=== PATIENT | male | born 2005 | race Hispanic/Latino ===

== ENCOUNTER 2024-06-25 08:38 | Emergency (ER) | payer SELFPAY ==
[~2024-06-25] VITALS: Ht 175.3 cm; Wt 69.9 kg
[2024-06-25 09:53] LABS: BASO # 0.1 10^3/uL (0.0-0.2); BASO % 0.9 % (0.0-1.0); EOS # 0.5 10^3/uL (0.0-0.5); EOS % 8.8 % (0.0-3.0); HEMATOCRIT 45.7 % (42.0-52.0); HEMOGLOBIN 15.6 g/dl (13.5-17.5); LYMPH # 1.1 10^3/uL (1.5-5.0); LYMPH % 19.4 % (24.0-44.0); MEAN CORPUSCULAR HEMOGLOBIN 29.7 pg (27.0-33.0); MEAN CORPUSCULAR HGB CONC 34.1 g/dl (32.0-36.5); MONO # 0.4 10^3/uL (0.0-0.8); MONO % 7.2 % (2.0-8.0); NEUTROPHILS # 3.6 10^3/uL (1.5-8.5); NEUTROPHILS % 63.5 % (36.0-66.0); PLATELET COUNT, AUTOMATED 204 10^3/uL (150-450); RED BLOOD COUNT 5.25 10^6/uL (4.30-6.10); WHITE BLOOD COUNT 5.7 10^3/uL (4.0-10.0)
[2024-06-25 10:14] LABS: LIPASE 30 U/L (12-53)
[2024-06-25 10:17] LABS: ALBUMIN 4.2 G/DL (3.2-5.2); ALKALINE PHOSPHATASE 118 U/L (46-116); ALT/SGPT 33 U/L (7.0-40); AST/SGOT 24 U/L (<34); BILIRUBIN,DIRECT 0.2 MG/DL (<0.4); BLOOD UREA NITROGEN 15 MG/DL (9-23); CALCIUM LEVEL 8.7 MG/DL (8.5-10.1); CARBON DIOXIDE LEVEL 26 MMOL/L (20-31); CHLORIDE LEVEL 107 MMOL/L (98-107); CREATININE FOR GFR 0.88 MG/DL (0.70-1.30); GLUCOSE, FASTING 104 MG/DL (60-100); POTASSIUM SERUM 4.1 MMOL/L (3.5-5.1); SODIUM LEVEL 138 MMOL/L (136-145); TOTAL PROTEIN 7.1 G/DL (5.7-8.2)
[2024-06-25] MEDS ORDERED: ISOVUE-370 76% 100ML VIAL As Ordered ONE (10:43)
[2024-06-25] MEDS: KETOROLAC 30 MG/ML 1ML VIAL IV ONE (10:54)
[2024-06-25] MEDS: ONDANSETRON 4MG 2ML VIAL IV ONE (10:54)
[2024-06-25 11:45] VITALS: BP 102/56; TEMP 97.7; O2SAT 100
[2024-06-25] MEDS ORDERED: AMOX875T2 PO (12:01)
[2024-06-25] MEDS: MAGNESIUM CITRATE 300ML BTL PO ONE (12:16)
== END 2024-06-25 12:19 | disposition home or self-care (01) ==
LOC: M ED 08:38
DX: K59.00 Constipation, unspecified (principal); R10.31 Right lower quadrant pain; F10.10 Alcohol abuse, uncomplicated; Z79.2 Long term (current) use of antibiotics
CPT/HCPCS: 74177; 80048; 80076; 83690; 85025; 96374; 99284; J1885; J2405; Q9967

== ENCOUNTER 2024-06-27 11:58 | Emergency (ER) | payer SELFPAY ==
[~2024-06-27] VITALS: Ht 167.6 cm; Wt 71.0 kg
[~2024-06-27 11:58] MED LIST: AMOX875T2 PO
[2024-06-27 12:52] LABS: BASO # 0.1 10^3/uL (0.0-0.2); EOS # 0.5 10^3/uL (0.0-0.5); EOS % 9.3 % (0.0-3.0); LYMPH # 1.5 10^3/uL (1.5-5.0); LYMPH % 29.9 % (24.0-44.0); MEAN CORPUSCULAR HEMOGLOBIN 29.6 pg (27.0-33.0); MEAN CORPUSCULAR VOLUME 86.9 fl (80.0-96.0); MONO # 0.3 10^3/uL (0.0-0.8); MONO % 6.4 % (2.0-8.0); NEUTROPHILS # 2.6 10^3/uL (1.5-8.5); NEUTROPHILS % 53.2 % (36.0-66.0); PLATELET COUNT, AUTOMATED 201 10^3/uL (150-450); RED BLOOD COUNT 5.41 10^6/uL (4.30-6.10); WHITE BLOOD COUNT 4.9 10^3/uL (4.0-10.0)
[2024-06-27 13:24] LABS: LIPASE 35 U/L (12-53)
[2024-06-27 13:30] LABS: ALBUMIN 4.3 G/DL (3.2-5.2); ALKALINE PHOSPHATASE 109 U/L (46-116); ALT/SGPT 29 U/L (7.0-40); AST/SGOT 12 U/L (<34); BILIRUBIN,DIRECT 0.2 MG/DL (<0.4); BILIRUBIN,TOTAL 0.8 MG/DL (0.3-1.2); BLOOD UREA NITROGEN 12 MG/DL (9-23); CALCIUM LEVEL 9.4 MG/DL (8.5-10.1); CARBON DIOXIDE LEVEL 27 MMOL/L (20-31); CHLORIDE LEVEL 105 MMOL/L (98-107); GLUCOSE, FASTING 85 MG/DL (60-100); POTASSIUM SERUM 4.1 MMOL/L (3.5-5.1); SODIUM LEVEL 136 MMOL/L (136-145); TOTAL PROTEIN 7.5 G/DL (5.7-8.2)
[2024-06-27 15:20] LABS: C REACTIVE PROTEIN QUANTITATIV < 0.40 MG/DL (<1.0)
[2024-06-27] MEDS ORDERED: SENN-85 PO (15:36)
[2024-06-27] MEDS ORDERED: MIRA3350 PO (15:36)
[2024-06-27] MEDS ORDERED: COLA100C5 PO (15:36)
[2024-06-27 15:54] LABS: Trichomonas vaginalis (AMP) NOT DETECTED (NEGATIVE)
[2024-06-27 15:55] VITALS: BP 133/75; TEMP 97.1; O2SAT 100
[2024-06-27 16:18] LABS: GC DNA AMPLIFICATION NEGATIVE (NEGATIVE)
[2024-06-27 17:08] LABS: ERYTHROCYTE SEDIMENTATION RATE 7 mm/hr (0-15)
== END 2024-06-27 15:58 | disposition home or self-care (01) ==
LOC: M ED 11:58
DX: K59.00 Constipation, unspecified (principal); Z79.899 Other long term (current) drug therapy